=== PATIENT | female | born 1990 | race African-American/Black ===

== ENCOUNTER 2021-03-29 19:50 | Outpatient (CLI) | payer OTHER, MEDICAID ==
[~2021-03-29] VITALS: Ht 180.3 cm; Wt 95.9 kg
[2021-03-29] MEDS ORDERED: PRENATAL TABLET PO (20:11)
[2021-03-29 20:15] VITALS: BP 128/81; PULSE 94; TEMP 98.3
--- NOTE | 2021-03-29 20:15 | NUR ---
G8L5 at 38.0 weeks gestation to L&D with c/o irregular ctx and vaginal pressure. She states that she has a history of fast labors and that with her 3rd and 4th she did not have much warning before delivery, only feeling vaginal pressure before coming to the hospital. She states she has had irregular ctx over the last few days, but they are not too painful. She denies LOF or vaginal bleeding. She reports good movement. EFMs explained and applied. FHR 140 bpm and reactive. VSS. SVE /-3, cervix is posterior and there is moderate amount of thick white discharge noted with exam. Plan of care reviewed with patient.
[2021-03-29 21:15] VITALS: BP 120/83; PULSE 87
--- NOTE | 2021-03-29 21:15 | NUR ---
SVE still /. CTX irregular 2-16 minutes apart. Patient reports no change in vaginal pressure. Reviewed options of going home or staying for another few hours to see if things progress. Patient states that she would like to go home. Labor precautions reviewed and patient was encouraged to return with any changes in ctx or vaginal pressure with her history of fast labors. Patient states understanding.
== END 2021-03-29 21:35 | disposition home or self-care (01) ==
LOC: LDRO 19:50
DX: O62.9 Abnormality of forces of labor, unspecified (principal); Z3A.38 38 weeks gestation of pregnancy

== ENCOUNTER 2021-04-06 18:26 | Emergency (ER) | payer OTHER, MEDICAID ==
[~2021-04-06] VITALS: Ht 180.3 cm; Wt 97.7 kg
[~2021-04-06 18:26] MED LIST: PRENATAL TABLET PO
[2021-04-06 21:00] VITALS: BP 130/78; PULSE 92; TEMP 98.5
== END 2021-04-06 20:04 | disposition home or self-care (01) ==
LOC: COL.ER 18:26
DX: O9A.213 Injury, poisoning and certain other consequences of external causes complicating pregnancy, third trimester (principal); S92.422A Displaced fracture of distal phalanx of left great toe, initial encounter for closed fracture; Z3A.39 39 weeks gestation of pregnancy; W10.9XXA Fall (on) (from) unspecified stairs and steps, initial encounter

== ENCOUNTER 2021-04-06 21:06 | Outpatient (CLI) | payer OTHER, MEDICAID ==
[2021-04-06 23:30] VITALS: BP 119/74; PULSE 101
--- NOTE | 2021-04-07 00:54 | NUR ---
DISMISSED PER W/C WITH FAMILY IN STABLE CONDITION
--- NOTE | 2021-04-07 01:03 | NUR ---
004O - EFM OFF, IV SITE DC'D CATHETER INTACT. DISCHARGE INSTRUCTIONS REVIEWED, VOICES GOOD UNDERSTANDING
== END 2021-04-07 00:53 | disposition home or self-care (01) ==
LOC: LDRO 21:06 → LDR 21:08 → LDRO 04-07 00:53
DX: O9A.213 Injury, poisoning and certain other consequences of external causes complicating pregnancy, third trimester (principal); M25.552 Pain in left hip; M79.672 Pain in left foot; Z3A.39 39 weeks gestation of pregnancy
CPT/HCPCS: OP

== ENCOUNTER 2021-04-15 10:59 | Outpatient (CLI) | payer OTHER, MEDICAID ==
[~2021-04-15] VITALS: Ht 180.3 cm; Wt 97.7 kg
--- NOTE | 2021-04-15 11:10 | NUR ---
1110-, 40.3, ambulates onto unit with S/O to LDR4. Oriented to room. Instructed to change into gown. Patient denies LOF,VB, or decreased movement. Patient reports ctx q 6-10 mins. EFM/TOCO explained and applied. SVE /-3. Plan of care discussed, patient verbalizes understanding.
[2021-04-15 11:30] VITALS: BP 125/86; PULSE 101; TEMP 98.3
[2021-04-15 12:30] VITALS: BP 123/85; PULSE 86
[2021-04-16] MEDS ORDERED: IBU600 MG PO (09:22)
== END 2021-04-15 13:10 | disposition home or self-care (01) ==
LOC: LDRO 10:59 → LDR 11:00 → LDRO 13:10
DX: O62.9 Abnormality of forces of labor, unspecified (principal); Z3A.40 40 weeks gestation of pregnancy
CPT/HCPCS: OP

== ENCOUNTER 2021-04-15 17:22 | Inpatient (IN) | payer OTHER, MEDICAID ==
[2021-04-15] VITALS (10 sets, daily range): BP systolic 133–144; BP diastolic 78–93; PULSE 87–974; TEMP 97.9
--- NOTE | 2021-04-15 17:48 | NUR ---
1727- Pt arrives on unit via wheelchair. Pt assisted into gown, transfers into bed. Pt severely uncomfortable with contractions. 1729- EFM and TOCO on, very difficult to trace FHR due to maternal movement and discomfort. 1731- SVE 9/100/0, intact. Pt denies LOF, VB. +FM per Pt. Pt does not want epidural 1733- Dr Reece notified of Pt, her current status, request MD to come to bedside. TORB: He will come to hospital now. 1743- Dr Reece at bedside. Pt and room prepped for delivery. 1746- AROM by MD, thick mec fluid noted. SVE complete. Pt encouraged to push with contractions and pressure. 1748- of viable male infant, tended to by Nori, nursery RN. Cord clamped and cut. Infant skin-2-skin with mom. 1752- Spontaneous delivery of placenta, Pitocin started at 333ml\hr. Fundus massaged by MD, noted firm. Perinuem intact. Pericare completed. Clean chux and ice pack under Pt.
[2021-04-15 17:53] LABS: BASO % 0.2 % (0.0-2.0); EOS # 0.2 K/mm3 (0.0-0.7); EOS % 1.6 % (0.0-4.0); GRAN # 6.7 K/mm3 (1.4-6.5); GRAN % 65.2 % (42.2-75.2); HEMOGLOBIN 11.3 g/dl (12.5-16.0); LYMPH # 2.5 K/mm3 (1.2-3.4); LYMPH % 24.1 % (20.0-51.0); MEAN CELL VOLUME 78 fl (80.0-100.0); MEAN CORPUSCULAR HEMOGLOBIN 24 pg (27-31); MEAN CORPUSCULAR HGB CONC 31 g/dl (33.0-37.0); MEAN PLATELET VOLUME 10.9 fl (7.4-10.4); MONO # 0.9 K/mm3 (0.1-0.6); MONO % 8.6 % (1.7-9.3); PLATELET COUNT 252 K/mm3 (130-400); RED BLOOD COUNT 4.75 M/mm3 (4.10-5.30); REDCELL DISTRIBUTION WIDTH-CV 17.6 % (11.5-14.5)
[2021-04-15 17:57] LABS: HEMATOCRIT 36.8 % (37.0-47.0)
[2021-04-16 00:35] VITALS: BP 125/85; PULSE 79; TEMP 98.3
[2021-04-16 03:45] VITALS: BP 117/67; PULSE 92; TEMP 97.7
[2021-04-16 07:00] VITALS: BP 125/85; PULSE 86; TEMP 97.7
[2021-04-16] MEDS ORDERED: IBU600 MG PO (09:22)
--- NOTE | 2021-04-16 10:21 | NUR ---
Initial visit attempt; Family resting, Validation Analyst left card offering congratulations for the of their son and information regarding the availability of spiritual care at [facility].
[2021-04-16 12:30] VITALS: BP 123/84; PULSE 97; TEMP 97.5
[2021-04-16 16:00] VITALS: BP 128/79; PULSE 94; TEMP 98.1
[2021-04-16 19:20] VITALS: BP 109/67; PULSE 89; TEMP 98.3
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
[2021-04-17 07:30] VITALS: BP 127/63; PULSE 89; TEMP 97.8
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
== END 2021-04-17 12:00 | disposition home or self-care (01) | DRG 807 ==
LOC: LDRO 17:22 → OB 17:37 → LDR 17:37 → OB 21:30
PROVIDERS: Obstetrics & Gynecology; ADMIT Obstetrics & Gynecology
PROC: 10E0XZZ Delivery of Products of Conception, External Approach (ICD-10-PCS; principal; 2021-04-15)
DX: O99.02 Anemia complicating childbirth (principal); Z37.0 Single live birth; D64.9 Anemia, unspecified; O99.344 Other mental disorders complicating childbirth; F32.A Depression, unspecified; F41.9 Anxiety disorder, unspecified; O77.0 Labor and delivery complicated by meconium in amniotic fluid; Z3A.40 40 weeks gestation of pregnancy
CPT/HCPCS: J2590; J7120

== ENCOUNTER 2021-11-07 14:22 | Emergency (ER) | payer OTHER, MEDICAID ==
[~2021-11-07] VITALS: Ht 180.3 cm; Wt 75.0 kg
[~2021-11-07 14:22] MED LIST changes: +IBU600 MG PO
[2021-11-07 15:16] LABS: BASO % 0.7 % (0.0-2.0); EOS # 0.2 K/mm3 (0.0-0.7); GRAN # 3.4 K/mm3 (1.4-6.5); GRAN % 58.3 % (42.2-75.2); HEMATOCRIT 37.9 % (37.0-47.0); HEMOGLOBIN 12.3 g/dl (12.5-16.0); LYMPH # 1.7 K/mm3 (1.2-3.4); LYMPH % 29.9 % (20.0-51.0); MEAN CELL VOLUME 84 fl (80.0-100.0); MEAN CORPUSCULAR HEMOGLOBIN 27 pg (27-31); MEAN CORPUSCULAR HGB CONC 33 g/dl (33.0-37.0); MEAN PLATELET VOLUME 10.2 fl (7.4-10.4); MONO # 0.4 K/mm3 (0.1-0.6); MONO % 6.9 % (1.7-9.3); PLATELET COUNT 318 K/mm3 (130-400); RED BLOOD COUNT 4.53 M/mm3 (4.10-5.30); REDCELL DISTRIBUTION WIDTH-CV 14.3 % (11.5-14.5)
[2021-11-07 15:27] LABS: ALANINE AMINOTRANSFERASE 9 U/L (0-55); ALBUMIN 3.8 gm/dL (3.5-5.0); ALKALINE PHOSPHATASE 89 U/L (40-150); ANION GAP 9 mmol/L (7-16); AST,SGOT 10 U/L (5-34); BILIRUBIN,TOTAL 0.4 mg/dL (0.2-1.2); BLOOD UREA NITROGEN 7 mg/dL (7-19); CALCIUM 10.3 mg/dL (8.4-10.2); CARBON DIOXIDE 20 mmol/L (22-29); CHLORIDE 111 mmol/L (98-107); CREATININE, serum 0.71 mg/dL (0.57-1.11); GLUCOSE 98 mg/dL (70-99); POTASSIUM 3.4 mmol/L (3.5-4.5); SODIUM 140 mmol/L (136-145); TOTAL PROTEIN 6.9 gm/dL (6.2-8.1)
[2021-11-07 15:28] LABS: ACETAMINOPHEN < 1.0 ug/mL (10-30); ALCOHOL(ethanol),MEDICAL < 10 mg/dL (0-10); SALICYLATE < 5.0 mg/dL (15.0-30.0)
[2021-11-07 16:04] LABS: COLLECTION METHOD CLEAN CATCH
[2021-11-07 16:17] LABS: MUCOUS Present (NOT PRESENT); PH 7 (5-8); SQUAMOUS EPITHELIAL 0-2 /hpf (0-10); URINE APPEARANCE Cloudy (CLEAR/HAZY); URINE BACTERIA Rare /hpf (NONE SEEN); URINE BILIRUBIN Negative (NEGATIVE); URINE BLOOD 3+ (NEGATIVE); URINE COLOR Yellow (YELLOW); URINE GLUCOSE Negative (NEGATIVE); URINE KETONE Negative (NEGATIVE); URINE LEUKOCYTE ESTERASE Negative (NEGATIVE); URINE NITRATE Negative (NEGATIVE); URINE PROTEIN(semi-quant) Negative (NEGATIVE); URINE RBC >50 /hpf (0-2); URINE UROBILINOGEN >=4.0 (NEGATIVE)
[2021-11-07 16:18] LABS: TRICYCLIC ANTIDEPRESS URINE NEGATIVE
[2021-11-07 19:22] VITALS: BP 118/82; PULSE 73; TEMP 98.3
== END 2021-11-07 20:30 ==
LOC: COL.ER 14:22
PROVIDERS: Emergency Medicine
DX: R45.851 Suicidal ideations (principal); Z20.822 Contact with and (suspected) exposure to COVID-19; Z28.310 Unvaccinated for COVID-19